=== PATIENT | female | born 1945 | race Caucasian/White ===

== ENCOUNTER → 2016-12-11 | Day surgery (SDC) | payer OTHER, MEDICARE ==
[~2016-12-11] MED LIST: ALTEPLASE 2 MG VIAL IVP ONE
--- NOTE | 2016-12-11 19:26 | IR ---
Lysis follow up check Indication: Patient has been lysed percutaneously 2 hours now into calf hematoma. Informed consent: Obtained from the patient. Risks and benefits were discussed. Crosscutting Measure: Patient's current list of medications including all known prescriptions, over- the-counters, herbals, and vitamin/mineral/dietary supplements are reviewed. Medications' name, dosa ge, frequency, and route of administration are confirmed. The patient is a non-smoker. Prophylactic Antibiotic: Cefazolin was not ordered and administered for antimicrobial prophylaxis be cause it was not medically necessary. VTE Prophylaxis: There is not an order for VTE prophylaxis to be given within 24 hours of the proced ure end time. VTE prophylaxis was not given because it was not medically necessary. Technique: Patient was placed in prone position. A "timeout" procedure was performed to identify th e correct patient and the correct procedure. 1% Xylocaine was used for local anesthetic. All eleme nts of maximal sterile barrier technique including cap, mask, sterile gown, sterile gloves, large sotero rile sheet, hand hygiene, and 2% chlorhexidine for cutaneous antisepsis, followed. Ultrasound evaluation of potential access site was performed. A permanent recording was created for the patient's record. When ultrasound is used, sterile gel and probe covers are used. Ultrasound shows some liquefaction of the calf hematoma. I was able to aspirate out the entire 10 mL volume that was injected, as well as additional 10 mL of dark blood. There still is quite a bit of he matoma remaining, but the overall size of the hematoma now is 3.6 x 2.4 cm, smaller than what we star felicita with. In addition, the calf feels softer. After discussion with the patient, the decision was made to continue lysis overnight. Additional 10 m g of TPA were then ordered from Pharmacy, mixed in a total of 20 mL of syringe, and injected into the pigtail catheter. The catheter was intentionally placed at the top of the hematoma so that by gravit y, some of the injected TPA will work the bottom part of the hematoma overnight. Patient tolerated the procedure well, and understood all the information discussed. Drain was dressed extrinsically and wrapped with a compression wrap. Impression: 1. Some liquefaction of the hematoma. 2. I think patient would benefit from continued overnight TPA lysis, which was done as above describe d. Plan: Patient is scheduled to come back tomorrow at noon for completion of the procedure. At that fang e, I suspect what get is all that we could accomplished. Fluoroscopy: 0.1 minutes, 1 image.
--- NOTE | 2016-12-11 19:34 | IR ---
Ultrasound and fluoroscopy-guided hematoma drainage and lysis Indication: About 6 weeks post ruptured Ye's cyst, with a large hematoma starting off about 8 cm in the calf, now down to 5 cm, still contributing to significant pain. Last ultrasound done was about 3 weeks ago. Patient still walks with a walker, and complains of ankle swelling and pain. Informed consent: Obtained from the patient. Risks and benefits were discussed. Specifically, multip le discussions took place with the patient prior to the patient presenting today over the phone, that described briefly what I had in mind for the patient. Patient has Von Willebrand disease and I reass ured her that TPA lysis into a tissue cavity typically does not cause any bleeding issues. Crosscutting Measure: Patient's current list of medications including all known prescriptions, over- the-counters, herbals, and vitamin/mineral/dietary supplements are reviewed. Medications' name, dosa ge, frequency, and route of administration are confirmed. The patient is a non-smoker. Prophylactic Antibiotic: Cefazolin was not ordered and administered for antimicrobial prophylaxis be cause it was not medically necessary. VTE Prophylaxis: There is not an order for VTE prophylaxis to be given within 24 hours of the proced ure end time. VTE prophylaxis was not given because it was not medically necessary. Technique: Patient was placed in prone position. A "timeout" procedure was performed to identify th e correct patient and the correct procedure. 1% Xylocaine was used for local anesthetic. All eleme nts of maximal sterile barrier technique including cap, mask, sterile gown, sterile gloves, large sotero rile sheet, hand hygiene, and 2% chlorhexidine for cutaneous antisepsis, followed. Ultrasound evaluation of potential access site was performed. A permanent recording was created for the patient's record. When ultrasound is used, sterile gel and probe covers are used. Initial ultrasound interrogation shows a hematoma that is 4.8 x 2.6 cm. It is somewhat tense on palpa tion. There are small areas of bruising on the skin. This hematoma is covered in septations and compl exity. After local anesthetics, under ultrasound guidance, I advanced a 5-Mauritian [employer] catheter into the mids t of this hematoma. I was able to aspirate only 5 mL of blood out. 6 mg of TPA in 20 mL of saline were injected into this hematoma. After some wire manipulation, I was able to remove 35 mL of fluid. With this success, I decided to perform the lyse and wait technique on this patient. The Yueh catheter was then exchanged over wire for a 10-Mauritian multi-sidehole pigtail catheter, after the tract was dilated with sequential dilators. This allowed a larger sidehole and a pigtail to gracia pulate the complexity within the hematoma. This was done. Additional 6 mg of TPA were ordered from pharmacy, mixed in 20 mL of saline, and injected into the he matoma. All of the previously injected 6 mg were already aspirated out. The drain was then capped, and patient was sent to Recovery Room for lysis. Patient tolerated the pr ocedure well. Fluoroscopy: 1.3 minutes, 4 images. Impression: 1. Some initial success seen with just injection of 6 mg of TPA with removal of some hematoma. 2. Residual 4.8 x 2.6 cm hematoma in the mid calf with some tenseness, and is extensively complex as anticipated. 3. Once the additional 6 mg of TPA were aspirated out, I injected additional 6 mg of TPA into the hem atoma for lyse and wait technique. Plan: Patient will lyse in Recovery Room for 2 hours. We will recheck at that point.
== END | disposition home or self-care (01) ==
LOC: FIMAGING 11:58
PROVIDERS: ATTEND Orthopaedic Surgery
PROC: 0J9N3ZZ Drainage of Right Lower Leg Subcutaneous Tissue and Fascia, Percutaneous Approach (ICD-10-PCS; principal; 2016-12-11)
DX: M79.81 Nontraumatic hematoma of soft tissue (principal)
CPT/HCPCS: 27603; 75989; C1729; C1769; J2997

== ENCOUNTER 2016-12-12 18:35 | Emergency (ER) | payer OTHER, MEDICARE ==
[2016-12-12 18:50] VITALS: RESP 18
--- NOTE | 2016-12-12 19:55 | EDPHY ---
H & P Stated Complaint: hematoma drained today r calfdr mao/bleeding at site/pt with bleeding disor Time Seen by Provider: 12/12/16 19:07 HPI/ROS: CHIEF COMPLAINT: Bleeding status post interventional radiology procedure HISTORY OF PRESENT ILLNESS: The patient presents to the ED with bleeding following a aspiration of a hematoma with infusion of tPA performed interventional radiology earlier today. The patient does have a history of von Willebrand's disease. She had drainage of the hematoma because it was symptomatic. The patient denies any numbness or weakness. She denies any recent history of trauma. The patient presents to the ED secondary to ongoing bleeding. She describes approximately a quarter cup of blood which drained earlier today. REVIEW OF SYSTEMS: A comprehensive 10 point review of systems is otherwise negative aside from elements mentioned in the history of present illness. - Personal History Current Tetanus/Diphtheria Vaccine: Yes - Medical/Surgical History Hx Asthma: No Hx Chronic Respiratory Disease: No Hx Diabetes: No Hx Cardiac Disease: Yes Hx Renal Disease: No Hx Cirrhosis: No Hx Alcoholism: No Hx HIV/AIDS: No Hx Splenectomy or Spleen Trauma: No Other PMH: Diabetes, history of heart attacks in 1999, blood disorder, breast cancer 2000, cornea problems, kidney stones - Social History Smoking Status: Never smoked - Physical Exam Exam: General Appearance: Alert, no distress Neurological: 5/5 strength noted throughout the right lower extremity, sensation intact to light touch Skin: Puncture site demonstrates mild venous oozing, there is no evidence of active arterial bleeding Musculoskeletal: Neck is supple nontender Extremities: No evidence of recurrent hematoma noted in the right leg Constitutional: Initial Vital Signs Temperature (C) 36.4 C 12/12/16 18:45 Heart Rate 91 12/12/16 18:45 Respiratory Rate 18 12/12/16 18:45 Blood Pressure 155/94 H 12/12/16 18:45 O2 Sat (%) 97 12/12/16 18:45 O2 Delivery Mode Room Air Allergies/Adverse Reactions: desmopressin acetate [From DDAVP (Refrigerated)] Allergy (Severe, Verified 12/12 18:43) Other-Enter Comments levofloxacin [From Levaquin] Allergy (Verified 12/12/16 18:43) Home Medications: Medication Instructions Recorded Aspirin [Aspirin 325 mg (*)] 325 mg PO DAILY 09/08/12 Cyclosporine [Restasis] 1 each LEFTEYE BID 09/08/12 Cholecalciferol Vit D3 [Vitamin D3 1,000 units PO DAILY 04/30/15 (*)] Ferrous Sulfate [Ferrous Sulf 325 160 mg PO DAILY 04/30/15 MG (*)] Multivitamin with Minerals 1 each PO DAILY 04/30/15 [Multiple Vitamin] Propylene Glycol/Peg 400 [Systane 1 drop OP HS 04/30/15 Gel Eye Drops] VITAMIN E 400 iunits PO Q2ODD 12/07/16 Medical Decision Making ED Course/Re-evaluation: The patient presents to the ED with postoperative bleeding likely a result of mild venous oozing and ongoing resolution of her calf hematoma. The case was reviewed with Dr. Luis from Radiology. The patient has been placed in a pressure dressing and will follow up with Dr. Luis for a recheck tomorrow. The patient will return this evening for any ongoing bleeding or other concerns. Departure - Departure Disposition: Home, Routine, Self-Care Clinical Impression: Post-operative hemorrhage Condition: Good Instructions: Hematoma (ED) Additional Instructions: 1. Please followup as directed by Dr. Luis tomorrow and
[2016-12-12 20:41] VITALS: BP 131/86; PULSE 77; TEMP 98.2; O2SAT 96
== END 2016-12-12 20:42 | disposition home or self-care (01) ==
DX: L76.21 Postprocedural hemorrhage of skin and subcutaneous tissue following a dermatologic procedure (principal); E11.9 Type 2 diabetes mellitus without complications; Z85.3 Personal history of malignant neoplasm of breast; Z79.82 Long term (current) use of aspirin

== ENCOUNTER → 2016-12-12 | Day surgery (SDC) | payer OTHER, MEDICARE ==
--- NOTE | 2016-12-14 09:12 | IR ---
Lysis Follow Up INDICATION: The patient went home yesterday with a pigtail catheter and infusion of 10 mg of TPA in the calf cavity. Follow up. Informed Consent: Obtained from the patient. Risks and benefits were discussed. Cross Cutting Measure: Patient's current list of medications including all known prescriptions, over -the-counters, herbals, and vitamin/mineral/dietary supplements are reviewed. Medications' name, dos age, frequency, and route of administration are confirmed. Patient is a non-smoker. Prophylactic Antibiotic: Cefazolin was not ordered and administered for antimicrobial prophylaxis be cause it was not medically necessary. VTE Prophylaxis: There is not an order for VTE prophylaxis to be given within 24 hours of the proced ure end time. VTE prophylaxis was not given because it was not medically necessary. Technique: Patient is placed in prone position. A "timeout" procedure was performed to identify the correct patient and the correct procedure. 1% Xylocaine was used for local anesthetic. All element s of maximal sterile barrier technique, including cap, mask, sterile gown, sterile gloves, large ster ile sheet, hand hygiene, and 2% chlorhexidine for cutaneous antisepsis, followed. Ultrasound evaluation of potential access site was performed. A permanent recording was created for the patient's record. When ultrasound is used, sterile gel and probe covers are used. Ultrasound interrogation shows definitive liquefaction of the majority of what is left in the cavity. I aspirated out 40 mL of blood, when the previous injection was 20 mL in volume. Postaspiration ultrasound shows a small residual hematoma that is 0.9 x 4.7 cm in transverse dimensio n. It is much narrower, just got a little bit longer in the mid calf. The craniocaudal extension fr om the medial popliteal fossa down to the distal calf is not changed. Therefore, considered that the third dimension is unchanged, and just by calculating via the transver se dimensions, there has been a 67% volume decrease since yesterday when the patient first presented with the residual hematoma. Physical exam also reveals a much softer calf. It is difficult for the patient to appreciate whether or not symptomatically she is any better. Catheter was removed. Compression stocking is applied. I encouraged the patient to ambulate, and to apply compression as well as ice pack, as needed. The alternative of continuing TPA infusion was discussed. I thought in general that what has not anthony ed in the last 24 hours likely will not lyse with continued lysis. However, that is an option if the patient feels that her symptoms could benefit from continued treatment. The patient expressed full understanding of all of the information discussed today and was fairly sat isfied with the overall volume decrease. IMPRESSIONS 1. Satisfactory overnight TPA lysis of the calf hematoma. 2. Overall decrease of the volume of the presenting calf hematoma by 67%. 3. What's left can be treated conservatively by application of compression stocking and ice pack. I f clinically indicated, we could repeat a 24 to 48 hour lysis for what's left in the calf. Thank you very much for referral of this patient.
== END | disposition home or self-care (01) ==
LOC: FIMAGING 12:41
PROVIDERS: ATTEND Radiology Diagnostic Radiology
PROC: 0J9N3ZZ Drainage of Right Lower Leg Subcutaneous Tissue and Fascia, Percutaneous Approach (ICD-10-PCS; principal; 2016-12-12)
DX: M79.81 Nontraumatic hematoma of soft tissue (principal)

== ENCOUNTER → 2016-12-14 | Outpatient (CLI) | payer OTHER, MEDICARE ==
--- NOTE | 2016-12-14 23:11 | US ---
Right Lower Extremity Duplex Venous Doppler INDICATION: Status post lysis of right calf hematoma. Patient went to the Emergency Department two days ago following the last episode of lysis with bleeding. The bleeding at that time is caused by residual TPA that was still in the residual hematoma. What wa s bleeding was residual hematoma. There was no new bleed. At that time, a large compression dressin g is applied to the top of the hematoma cavity, while leaving the incision site where the drain was d istally for exit of any fresh blood. Indeed, once the TPA effect has worn off 12 hours later, the pa tient stopped bleeding. However, because of the application of the compression, the patient's foot is now swollen. The patie nt presents today for follow up, as previously scheduled. TECHNIQUE: First, the compressive dressing is removed. There is no sign of bleeding. There is swel ling at the ankle and foot. What is most concerning to this patient is a large patch of skin tear that was caused by, according t o the patient, rapid removal of the Tegaderm in the Emergency Department. The patient says that was extremely painful, and continues to be painful. Nonadhesive dressing has been applied to the site at this time. I scanned the calf above and below the skin tear site. A DVT ultrasound was also performed to a limi felicita extent. FINDINGS: The hematoma now measures on transverse dimension 2.9 x 2 cm. It is slightly larger than the previous 4.7 x 0.9 cm by volume, probably because of interval reaccumulation of some of the blood that did not come out with the compression dressing. The overall cranial to caudal extension of thi s hematoma remains at 11 cm. Some of this blood within it is also soft, and I suppose if I stuck a n eedle into this today, I would be able to remove some of this blood. However, I think at this point no additional procedure is beneficial for the patient. Otherwise, there is no evidence for DVT below the knee. IMPRESSION: 1. Small hematoma remaining in the calf, still about 60% decreased in volume compared to what she st arted with. 2. No further bleeding 3. Ankle and calf swelling were resolved now that the compression dressing is removed. 4. Skin tear from previous Tegaderm removal, now dressed with nonadhesive dressing. This is also co lissett today with a light Kerlix wrap. Recommendations 1. Continue walking, as tolerated. 2. It would be best if the patient could tolerate a compressive stocking, which at this point the pa tient is refusing to do because of pain. I think at some point, when the swelling and pain gets bett er and the skin tear heals, return to application of compressive stocking would benefit the patient. 3. The residual hematoma in the calf will just take time to resorb. All of this was discussed in detail with the patient, with her present. Total [id number] c onsultation was one hour. The above are also discussed with Dr. Humza Pedroza. E:Joshua/ludwin
== END ==
LOC: FIMAGING 09:04
PROVIDERS: ATTEND Radiology Diagnostic Radiology
DX: L76.32 Postprocedural hematoma of skin and subcutaneous tissue following other procedure (principal)

== ENCOUNTER 2017-02-07 10:11 | Inpatient (IN) | payer OTHER, MEDICARE ==
--- NOTE | 2017-02-07 10:56 | CPEKG ---
Heart Rate: 79 RR Interval: 759 P-R Interval: 188 QRSD Interval: 132 QT Interval: 436 QTC Interval: 500 P Sears: 22 QRS Sears: -18 T Wave Sears: -5 EKG Severity - ABNORMAL ECG - EKG Impression: SINUS RHYTHM EKG Impression: PROBABLE LEFT ATRIAL ABNORMALITY EKG Impression: RIGHT BUNDLE BRANCH BLOCK EKG Impression: LEFT VENTRICULAR HYPERTROPHY Electronically Signed By: Juan José Casanova 07-Feb-2017 15:11:46
[2017-02-07] MEDS ORDERED: NS 1,000 ML IV ONE (10:59)
[2017-02-07 11:16] LABS: % IMMATURE GRANULYOCYTES 0.8 % (0.0-1.1); ABSOLUTE IMMATURE GRANULOCYTES 0.11 10^3/uL (0.00-0.10); ADD DIFF? NO; ADD MORPH? NO; ADD SCAN? NO; ATYPICAL LYMPHOCYTE FLAG 0 (0-99); FRAGMENT RBC FLAG 0 (0-99); HEMATOCRIT 29.3 % (38.0-47.0); HEMOGLOBIN 9.6 g/dL (12.6-16.3); LEFT SHIFT FLG 0 (0-99); LIPEMIA HEMOLYSIS FLAG 80 (0-99); MEAN CELL HEMOGLOBIN 30.1 pg (27.9-34.1); MEAN CELL HEMOGLOBIN CONCENTR. 32.8 g/dL (32.4-36.7); MEAN CELL VOLUME 91.8 fL (81.5-99.8); MEAN PLATELET VOLUME 10.7 fL (8.7-11.7); PLATELET CLUMPS FLAG 0 (0-99); PLATELET COUNT 287 10^3/uL (150-400); RED BLOOD CELL COUNT 3.19 10^6/uL (4.18-5.33); RED CELL DISTRIBUTION WIDTH 13.4 % (11.5-15.2)
[2017-02-07 11:23] LABS: ANION GAP 9 mEq/L (8-16); CALCIUM 9.8 mg/dL (8.5-10.4); CARBON DIOXIDE 21 mEq/l (22-31); CHLORIDE 112 mEq/L (97-110); CREATININE 0.8 mg/dL (0.6-1.0); GLOMERULAR FILTRATION RATE > 60; GLUCOSE 128 mg/dL (70-100); POTASSIUM 4.3 mEq/L (3.5-5.2); SODIUM 142 mEq/L (134-144)
--- NOTE | 2017-02-07 11:23 | EDPHY ---
H & P Smoking Status: Never smoked Time Seen by Provider: 02/07/17 10:36 HPI/ROS: CHIEF COMPLAINT: Dizziness, diarrhea HISTORY OF PRESENT ILLNESS: 71-year-old female presents to the emergency department feeling extremely dizzy. The patient states that she was so dizzy yesterday that she could stand upright. She had to crawl to the bathroom. She has had multiple episodes of watery diarrhea. She denies blood in her stool. She did try taking Pepto-Bismol which she thought was the reason that her stool was more black in color. Denies abdominal pain. Denies nausea or vomiting. Denies back pain. Denies chest pain or difficulty breathing. She feels extremely dizzy especially when she tries to sit upright. No fevers or chills. No recent travel. No known ill contacts. She has not been on antibiotics recently for anything. REVIEW OF SYSTEMS: Constitutional: No fever, no chills. Eyes: No double or blurry vision. ENT: No sore throat. Respiratory: No cough, no shortness of breath. Cardiac: No chest pain. Gastrointestinal: Diarrhea as above. No abdominal pain or vomiting. Genitourinary: No dysuria. Musculoskeletal: No neck or back pain. Skin: No rashes. Neurological: No headache. (Radha Lemons) Past Medical/Surgical History: Diabetes, myocardial infarction, von Willebrand, breast cancer, osteoarthritis ( Radha Lemons) Social History: (Radha Lemons) Physical Exam: General Appearance: Alert, no distress. 95/49, heart rate 91, 99% on room air, afebrile. Eyes: Pupils equal and round. Extraocular motions are all intact. No nystagmus. ENT: Mouth: Mucous membranes moist. Respiratory: No wheezing, rhonchi, or rales, lungs are clear to auscultation. Cardiovascular: Regular rate and rhythm. Gastrointestinal: Abdomen is soft and nontender, no masses, no rebound or guarding, bowel sounds normal. Neurological: Alert and oriented x 3, cranial nerves II through XII grossly intact Skin: Warm and dry, no rashes. Rectal exam: Normal sphincter tone. Positive for melena. No bright red blood. Musculoskeletal: Nontender to palpate along the cervical, thoracic or lumbar spine. Neck is supple. Extremities: Full range of motion and no peripheral edema. Psychiatric: Patient is oriented X 3, there is no agitation. (Radha Lemons) Constitutional: Initial Vital Signs Temperature (C) 36.2 C 02/07/17 10:20 Heart Rate 91 02/07/17 10:20 Respiratory Rate 22 H 02/07/17 10:20 Blood Pressure 95/49 L 02/07/17 10:20 O2 Sat (%) 99 02/07/17 10:20 O2 Delivery Mode Room Air Allergies/Adverse Reactions: desmopressin acetate [From DDAVP (Refrigerated)] Allergy (Severe, Verified 02/07 10:20) Other-Enter Comments levofloxacin [From Levaquin] Allergy (Verified 02/07/17 10:20) Home Medications: Medication Instructions Recorded Aspirin [Aspirin 325 mg (*)] 325 mg PO DAILY 09/08/12 Cholecalciferol Vit D3 [Vitamin D3 1,000 units PO DAILY 04/30/15 (*)] Ferrous Sulfate [Ferrous Sulf 325 160 mg PO DAILY 04/30/15 MG (*)] Multivitamin with Minerals 1 each PO DAILY 04/30/15 [Multiple Vitamin] Propylene Glycol/Peg 400 [Systane 1 drop EACHEYE HS 04/30/15 Gel Eye Drops] Herbals/Supplements -Info Only 1 ea PO DAILY 12/07/16 cycloSPORINE 0.05% [Restasis Opht 1 drop LEFTEYE BID 02/07/17 Drops(*)] Medical Decision Making - Diagnostics EKG Interpretation: 12-lead EKG interpreted by me; official reading is in trace master. My interpretation is sinus rhythm rate 79 with right bundle branch block and LVH. ( Juan José Casanova) ED Course/Re-evaluation: 71-year-old female presents feeling very dizzy and having diarrhea. Rectal exam reveals melena. CBC reveals hemoglobin of 9 and hematocrit of 29.3. This is much lower compared with laboratory test 1 month prior were her CBC was normal. I explained to the patient that she should be admitted to the hospital. The patient tells me that she has several appointments tomorrow that she does not want to miss. Dr. Juan José Casanova also talk with the patient and the patient will be admitted to the hospitalist, Dr. Lopez. I spoke with Dr. Duarte, on-call camera systems engineer of the [facility] who will consult on this patient. He agrees with IV Protonix. (Radha Lemons) Differential Diagnosis: Including but not limited to GI bleed, gastroenteritis, dehydration, electrolyte abnormality, arrhythmia (Radha Lemons) Other Provider: PHYSICIAN DOCUMENTATION: The patient was evaluated and managed by the Physician Construction Laborer and myself. I have reviewed the chart and agree with the findings and plan of care as documented. In addition, I examined the patient myself at 1220. History confirmed as diarrhea for a few days but melena only for 24 hours. Physical findings as follows: Abdomen soft and nontender. Patient blood pressure 90/4 systolic. Admission for dehydration, possible GI bleed with large drop in hematocrit and melena. Consultation from GI. Patient has Von Willebrands but refuses DDAVP because of previous adverse reaction. I am the secondary supervising physician. (Juan José Casanova) - Data Points Laboratory Results: Laboratory Results 02/07/17 10:40 02/07/17 10:40 02/07/17 02/07/17 02/07/17 11:30 10:40 10:40 WBC 14.49 10^3/uL H 10^3/uL (3.80-9.50) RBC 3.19 10^6/uL L 10^6/uL (4.18-5.33) Hgb 9.6 g/dL L g/dL (12.6-16.3) Hct 29.3 % L % (38.0-47.0) MCV 91.8 fL fL (81.5-99.8) MCH 30.1 pg pg (27.9-34.1) MCHC 32.8 g/dL g/dL (32.4-36.7) RDW 13.4 % % (11.5-15.2) Plt Count 287 10^3/uL 10^3/uL (150-400) MPV 10.7 fL fL (8.7-11.7) Neut % (Auto) 78.1 % H % (39.3-74.2) Lymph % (Auto) 15.4 % % (15.0-45.0) Motley % (Auto) 5.4 % % (4.5-13.0) Eos % (Auto) 0.1 % L % (0.6-7.6) Baso % (Auto) 0.2 % L % (0.3-1.7) Nucleat RBC Rel Count 0.0 % % (0.0-0.2) Absolute Neuts (auto) 11.33 10^3/uL H 10^3/uL (1.70-6.50) Absolute Lymphs (auto) 2.23 10^3/uL 10^3/uL (1.00-3.00) Absolute Monos (auto) 0.78 10^3/uL 10^3/uL (0.30-0.80) Absolute Eos (auto) 0.01 10^3/uL L 10^3/uL (0.03-0.40) Absolute Basos (auto) 0.03 10^3/uL 10^3/uL (0.02-0.10) Absolute Nucleated RBC 0.00 10^3/uL 10^3/uL (0-0.01) Immature Gran % 0.8 % % (0.0-1.1) Immature Gran # 0.11 10^3/uL H 10^3/uL (0.00-0.10) PT INR APTT Sodium 142 mEq/L mEq/L (134-144) Potassium 4.3 mEq/L mEq/L (3.5-5.2) Chloride 112 mEq/L H mEq/L (97-110) Carbon Dioxide 21 mEq/l L mEq/l (22-31) Anion Gap 9 mEq/L mEq/L (8-16) BUN 62 mg/dL H mg/dL (7-23) Creatinine 0.8 mg/dL mg/dL (0.6-1.0) Estimated GFR > 60 Glucose 128 mg/dL H mg/dL (70-100) Calcium 9.8 mg/dL mg/dL (8.5-10.4) Troponin I < 0.012 ng/mL ng/mL (0-0.034) Stool Occult Bld Scrn POSITIVE H (NEGATIVE) 02/07/17 10:00 WBC RBC Hgb Hct MCV MCH MCHC RDW Plt Count MPV Neut % (Auto) Lymph % (Auto) Motley % (Auto) Eos % (Auto) Baso % (Auto) Nucleat RBC Rel Count Absolute Neuts (auto) Absolute Lymphs (auto) Absolute Monos (auto) Absolute Eos (auto) Absolute Basos (auto) Absolute Nucleated RBC Immature Gran % Immature Gran # PT 14.1 SEC SEC (12.0-15.0) INR 1.10 (0.83-1.16) APTT 24.8 SEC SEC (23.0-38.0) Sodium Potassium Chloride Carbon Dioxide Anion Gap BUN Creatinine Estimated GFR Glucose Calcium Troponin I Stool Occult Bld Scrn Microbiology Results: MICROBIOLOGY 02/07/17 11:30 Stool Fecal Leukocyte Stain - Final Medications Given: Discontinued Medications Sodium Chloride (Ns) 1,000 mls @ 0 mls/hr IV ONCE ONE PRN Reason: Wide Open Stop: 02/07/17 11:00 Last Admin: 02/07/17 11:00 Dose: 1,000 mls Pantoprazole Sodium 40 mg/ (Sodium Chloride) 100 mls @ 200 mls/hr IV EDNOW ONE Stop: 02/07/17 12:44 Last Admin: 02/07/17 12:34 Dose: 100 mls Departure - Departure Disposition: [facility] In[facility] Acute Clinical Impression: GI bleed Qualifiers: GI bleed type/associated pathology: melena Qualified Code(s): K92.1 - Melena Anemia Qualifiers: Anemia type: unspecified type Qualified Code(s): D64.9 - Anemia, unspecified Condition: Good
[2017-02-07 11:35] LABS: TROPONIN I < 0.012 ng/mL (0-0.034)
[2017-02-07] MEDS ORDERED: PANTOPRAZOLE SODIUM 40 MG in NS 100 ML IV ONE (12:15)
[2017-02-07] MEDS ORDERED: ONDANSETRON 4 MG/2 ML VIAL IVP PRN (12:16)
[2017-02-07] MEDS ORDERED: ACETAMINOPHEN 325 MG TAB PO PRN (12:16)
[2017-02-07] MEDS ORDERED: ONDANSETRON DISINTEGRATING 4 MG TAB PO PRN (12:16)
[2017-02-07] MEDS ORDERED: NS 1,000 ML IV SCH (12:30)
[2017-02-07 12:31] LABS: INR 1.1 (0.83-1.16); PROTIME(PATIENT) 14.1 SEC (12.0-15.0)
[2017-02-07 12:32] LABS: APTT 24.8 SEC (23.0-38.0)
--- NOTE | 2017-02-07 15:21 | GHP ---
[f rep st] HISTORY AND PHYSICAL DATE OF ADMISSION: 02/07/2017 CHIEF COMPLAINT: Diarrhea. HISTORY OF PRESENT ILLNESS: A 71-year-old female with a history of von Willebrand factor, who prese nts with diarrhea for 48 hours. The patient reports a preceding syndrome of lightheadedness and diz ziness, then presentation of normal color diarrhea which became dark black over the course of 48 radhames rs, associated with severe fatigue and severe dizziness, keeping the patient from comfortably ambula ting from the bathroom to her bedroom on the day of presentation. The patient denied any associated chest pain. Denies shortness of breath. Did have some phlegm production, but no true cough. Zia ed abdominal discomfort. Denied nausea or vomiting. Reports she has not had solid food intake for over 24 hours prior to presentation. The patient denies any alcohol intake, use of NSAID, anti-infl ammatories, or any preceding symptoms of dyspepsia. Reports a recent and chronic left lower extremi ty/ankle wound, which she has been receiving wound care for. This wound has been requiring frequent use of p.r.n. Percocet that she describes as daily, but not more than once a day. PAST MEDICAL HISTORY: 1. Coronary artery disease, status post stenting. 2. Von Willebrand disease. 3. Recent left calf hematoma, status post tPA and evacuation. 4. History of cholecystectomy. 5. History of small-bowel obstructions secondary to adhesions. 6. History of iron-deficiency anemia. 7. History of nephrolithiasis. 8. Osteoarthritis. 9. Vitamin D deficiency. SOCIAL HISTORY: Negative for tobacco. Very rare alcohol. No illicit drugs or marijuana. The tere ent lives at home with her . FAMILY HISTORY: Negative for von Willebrand disease. REVIEW OF SYSTEMS: A 10-point review of systems is negative with the exception of that reported in the HPI. PHYSICAL EXAMINATION: VITAL SIGNS: Blood pressure is 122/78, heart rate 77, respiratory rate 12, s aturating 99% on room air. Afebrile at 36.6. GENERAL: This is a pleasant-appearing elderly female in no acute distress. HEENT: Notable for moist mucous membranes. Eyes: Negative for any icterus . CARDIAC: Patient is regular rate and rhythm. A quiet systolic murmur is appreciated. PULMONARY : Patient has good respiratory effort, is clear to auscultation bilaterally. GASTROINTESTINAL: Po sitive bowel sounds. ABDOMEN: Soft. She is nontender in all 4 quadrants. MUSCULOSKELETAL: Negat jack for any lower extremity edema. SKIN: Negative for any rashes. NEUROLOGIC: The patient is ruben rt and oriented x3. PSYCHIATRIC: She is pleasant and cooperative on interview and examination. DATA: White count 14.4, hemoglobin 9.6 from 13.2 one month ago. Hematocrit 29, platelet count 287. Sodium 142, BUN 62, creatinine 0.8, blood glucose 128. Troponin less than 0.012. Hemoccult posit jack. EKG, which I personally reviewed and interpreted, shows sinus rhythm, leftward axis deviation with right bundle branch block. No acute ST-T changes. ASSESSMENT AND PLAN: This is a 71-year-old female, presenting with melena and new anemia. 1. Acute suspected upper gastrointestinal bleed. The patient does not have a lot of symptoms prece ding this presentation, but has had a precipitous drop in her blood counts since last checked. Base d on her melena, highly suspicious of an upper source. Will initiate IV PPI, IV fluids, keep the pa tient n.p.o. She will be seen by Gastroenterology and scoped later this afternoon. 2. Anemia, secondary to acute blood loss. The patient is certainly at risk for more precipitous bl eeding secondary to her von Willebrand disease. Holding the patient's aspirin and treating for uppe r GI bleed as above, will closely monitor H and H overnight and in the morning. 3. Von Willebrand disease. Patient does have preceding histories of hematomas and complications. Will monitor her H and H closely. Current vital signs are stable. 4. Coronary artery disease. Patient does not have chest pain complaints. Will hold her aspirin. EKG is "unconcerning" for acute ischemia. 5. History of iron-deficiency anemia. The patient presented with normal hemoglobin and hematocrit. Will certainly need iron repletion after this acute hospitalization. Can continue after taking p. o. 6. Arthritis. Patient intermittently uses naproxen; however, the usage does not seem to correlate with a cause for upper gastrointestinal bleed. Will avoid NSAIDs at this time. 7. Prophylaxis. No heparin as the patient is presenting with acute gastrointestinal bleed. DIET: N.p.o. for EGD. DISPOSITION: Greater than 2 midnights as the patient is presenting with upper GI bleed complicated by an underlying bleeding disorder. Suspect it will take more than 1 midnight to stabilize the tere ent and safely monitor her blood counts. I have discussed the case with the emergency room sae barrios. Patient will be triaged to the medical-surgical floor for stabilization, monitoring, and EGD. /[id number]/MODL
[2017-02-07] MEDS ORDERED: fentaNYL 100 MCG/2 ML INJ ONE (17:33)
[2017-02-07] MEDS ORDERED: MIDAZOLAM 2 MG/2 ML VIAL ONE (17:33)
--- NOTE | 2017-02-07 17:56 | SOAPPROG ---
[facility] Progress Note Assessment/Plan: Assessment:Plan: pt seen and examined full consult to follow suspect PUD from [facility] urgent EGD 02/07/17 17:56 Objective: Vital Signs Temp Pulse Resp BP Pulse Ox 36.7 C 85 18 112/57 L 98 02/07/17 15:12 02/07/17 15:12 02/07/17 15:12 02/07/17 15:12 02/07/17 15:12 02/06/17 02/07/17 02/08/17 05:59 05:59 05:59 Intake Total 1000 Balance 1000 PT 14.1 SEC (12.0-15.0) 02/07/17 10:00 INR 1.10 (0.83-1.16) 02/07/17 10:00 ICD10 Worksheet Patient Problems: Problems Problem Status Onset Anemia Acute GI bleed Acute SBO (small bowel obstruction) Acute
--- NOTE | 2017-02-07 17:58 | POSTOPPROG ---
Post Op Note Date of Operation: 02/07/17 Surgeon: Fortino Duarte Anesthesia: IV Sedation (Versed 5mg Fentanyl 100 mcg IV) Pre-op Diagnosis: PUD Post-op Diagnosis: large antonia erosions with bleed, ?paraesophageal hernia Indication: melena, post hemorrhagic anemia Procedure: EGD and bx Findings: large HH poss paraesophageal component with large antonia erosions w bleedi Inf/Abcess present in the surg proc area at time of surgery?: No EBL: Minimal (few ml) Complications: none immediate Specimen(s): michelle test
--- NOTE | 2017-02-07 19:48 | GPN ---
[f rep st] PROCEDURE NOTE DATE OF PROCEDURE: 02/07/2017 PROCEDURE: Esophagogastroduodenoscopy and biopsy. INDICATION FOR PROCEDURE: Melena and posthemorrhagic anemia. PREOPERATIVE DIAGNOSIS: Rule out peptic ulcer disease. POSTOPERATIVE DIAGNOSES: 1. Large hiatal hernia with Denis erosions with active bleeding from Denis erosions. 2. No evidence of peptic ulcer disease. 3. Normal esophagus and normal duodenal. INFORMED CONSENT: I had a detailed discussion with the patient regarding the procedure, alternatives, benefits, and risks, including bleeding, perforation, infection, risk of medication. Informed consent was signed and witnessed. COMPLICATIONS: None immediate. MEDICATIONS USED: Versed 5 mg IV, fentanyl 100 mcg IV. DESCRIPTION OF PROCEDURE: Patient was placed in the left lateral decubitus position. Adequate IV sedation was obtained. The forward viewing upper endoscope was inserted into the oropharynx and down the esophagus. The esophagus was normal. There was no evidence of esophagitis, varices, or other abnormality. The endoscope was advanced to the very large hiatal hernia sac. There were obvious Denis erosions noted in the hiatal hernia sac with stigmata of recent bleed. There was a small amount of fresh heme and some old heme around the area as well. There is nothing to treat endoscopically with these large Denis erosions. The endoscope was advanced down into the antrum. There were no ulcers or masses in the antrum. I advanced into the duodenal bulb and sweep. There were no ulcers or masses. The endoscope was withdrawn back into the stomach and retroflexion was performed. The endoscope was withdrawn back into the hiatal hernia sac and photographs were obtained again. There was a possible paraesophageal component to the very large hiatal hernia. The endoscope was then advanced down to the antrum and biopsy taken for CLOtest. The endoscope was then completely withdrawn, confirming the above findings. The patient tolerated the procedure well and was transferred to the recovery area in a satisfactory condition. IMPRESSION: Large hiatal hernia, possible paraesophageal component with Denis erosions to cause the patient's melena and posthemorrhagic anemia. RECOMMENDATIONS: 1. PPI b.i.d. at least for 8 weeks, unlikely she made need a b.i.d. dosage intermediate. I would certainly keep her on a daily dosage intermediate given this large hiatal hernia. History of iron deficiency anemia which, likely related to Denis erosions, were not noted at the previous endoscopy, need for intermediate aspirin secondary to cardiac disease and von Willebrand disease as well. 2. Follow up CLOtest. If negative, check for H pylori with either a breath test, stool test, or antibody test. In this patient, I prefer an antibody test ; however, this is not available at [facility] currently. The stool test and breath test will need to be performed when she is off PPI therapy which I do not want her to be in the future. 3. Transfer back to floor. 4. Advance diet. 5. No need for transfusion at present. 6. Further recommendations to follow results of above and clinical course. As an outpatient, I will likely want an upper GI series as well to delineate if there is a significant paraesophageal component to her hiatal hernia. She did not have any symptoms for paraesophageal hernia, although there is a very large hiatal hernia on today's exam. As noted above, she will need b.i.d. PPI for at least 8 weeks and maybe long-term. Denis erosions can come and go. PPI therapy, eradication of H pylori are main stage of treatment. If she has a paraesophageal hernia, surgery can be considered. Surgey can also be considered with a hiatal hernia, but it is a major surgery, and if we are able to keep the Denis erosions healed with medications, I may not recommend surgery. I was surprised that there was not peptic ulcer disease as Denis erosions are not common to present with significant GI bleed, and it has been many years since I saw a patient present with Denis erosions in this fashion, and this week I have had 2 such patients. Thank you for allowing me to participate in this patient's healthcare. Do not hesitate to call me with any questions. /[id number]/MODL MTDD
--- NOTE | 2017-02-07 19:48 | GCON ---
[f rep st] CONSULTATION DATE OF CONSULTATION: 02/07/2017 REQUESTING PHYSICIAN: Dr. Juan José Casanova. INDICATION FOR CONSULTATION: Melena and posthemorrhagic anemia. HISTORY OF PRESENT ILLNESS: I have been asked by Dr. Casanova and Dr. Lopez to see this patient in consultation for a chief complaint of new-onset melena and posthemorrhagic anemia associated with near syncope. She is a pleasant 71-year-old female with a history significant for coronary artery disease, status post stenting, von Willebrand disease, iron-deficiency anemia, nephrolithiasis, arthritis, vitamin D deficiency, and breast cancer. She did have a workup for iron-deficiency anemia back in 2009 with an EGD and colonoscopy which revealed a large hiatal hernia, mild gastric erythema, normal duodenal, and normal stomach. Her colonoscopy revealed moderate diverticulosis in the sigmoid, descending, and transverse colon, and a 3 mm sessile polyp in the rectum. The pathology of the duodenum was normal, without evidence of celiac sprue. The antrum showed no significant findings, and a rectal polyp was hyperplastic. 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 The only other endoscopy the patient had since then was an ERCP for choledocholithiasis. She was in her usual state of health until Sunday when she started to have diarrhea which was normal in color initially. Early Sunday morning. She had a significant episode of near-syncope, and somewhat later her stools turned black, consistent with melena. She had some dyspnea on exertion and fatigue, along with severe dizziness and near-syncope. She did not complain of any chest pain, palpitations, nausea, or vomiting. Her melena has subsided today, but she felt so poorly, she presented to the emergency room. She was noted to be severely anemic and admitted for the above. I have been called to help and evaluate and treat a presumed upper GI bleed. PAST MEDICAL HISTORY: Coronary artery disease, status post stenting, history of von Willebrand disease, breast cancer in 2000. She has had 2 MIs, kidney stones, gallstones, iron-deficiency anemia, osteoarthritis, and vitamin D deficiency. PAST SURGICAL HISTORY: Surgeries include appendectomy, tonsillectomy when she was young, lysis of adhesions, and back surgery in 1990. She needed surgical removal of a kidney stone. She had a cholecystectomy and ERCP afterwards for common bile duct stones. She has had eye surgery for corneal erosions and wears a medicated contact lens which is changed once monthly. She also had a recent lysis of adhesions, as well as knee arthroscopies. SOCIAL HISTORY: She does not smoke. She drinks alcohol once a year. ALLERGIES: To DDAVP and Levaquin. FAMILY HISTORY: Father had prostate cancer. There is no colon cancer to her knowledge. MEDICATIONS: At home included aspirin 325 mg daily, eyedrops at night, iron tablets 325 mg daily, vitamin D 1000 units daily, multivitamins, and Restasis eyedrops. In the hospital she was written for Protonix IV, Zofran p.r.n., morphine p.r.n., and her iron and aspirin were held. REVIEW OF SYSTEMS: A comprehensive review of systems was obtained, and is negative other than noted in the HPI. Pertinent positives include her melena, her diarrhea, her dyspnea on exertion, her fatigue, her severe dizziness and near syncope. Pertinent negatives include no palpitations, chest pain, vomiting. PHYSICAL EXAMINATION: GENERAL: Well-developed, well-nourished elderly female sitting in her bed in no acute distress. Her and daughter are in the room as well. VITAL SIGNS: Her pressure is 112/57, pulse of 85, respirations 18 , 98% on room air, temperature 36.7. HEENT: Eyes anicteric. DONNY. EOMI. Mouth: No lesions. NECK: Supple. No JVD. No lymphadenopathy noted. BACK: No spine tenderness. No CVA tenderness. LUNGS: Clear to auscultation. CARDIAC: S1, S2. Regular rate and rhythm. No rubs or gallops appreciated. She has a faint systolic murmur. ABDOMEN: Bowel sounds normal pitch and frequency. Soft, nontender. No hepatosplenomegaly. EXTREMITIES: No cyanosis, clubbing, or edema. NEUROLOGIC: Cranial nerves intact. Nonfocal. SKIN: No stigmata of advanced liver disease. No rashes. LABORATORY DATA: From February 07: WBC 14.49, hemoglobin 9.6, hematocrit 29.3, platelet count 287. Sodium 142, potassium 4.3, chloride 112, BUN 62, creatinine 0.8, glucose 128, calcium 9.8. She was heme-positive in the ER. H pylori serology is pending. Laboratory data from January 11, 2017: Hemoglobin 13.2, hematocrit 40.0. Previous endoscopies performed on June 27, 2010, EGD and colonoscopy. Colonoscopy was a good prep, exam to the cecum. Diverticulosis in the sigmoid, descending, and transverse colon. A 3 mm polyp removed from the rectum was a hyperplastic polyp. EGD performed the same date: Normal esophagus, large hiatal hernia, patchy erythema in the stomach, normal duodenal limb. Pathology of the duodenal mucosa was normal without evidence of celiac sprue and pathology of the antrum showed no significant findings, negative for H pylori. At that point , Dr. Archibald surmised that her anemia was likely caused from Denis erosions and recommended her be on a PPI fdc. ASSESSMENT: 1. Post hemorrhagic anemia. 2. Melena. 3. Von Willebrand disease. 4. [facility] use of aspirin 325 mg. 5. History of iron-deficiency anemia, likely related to Denis erosions from a large hiatal hernia. 6. History of coronary disease, status post stenting a number of years ago. 7. History of arthritis. 8. History of nephrolithiasis. RECOMMENDATIONS: 1. Urgent EGD for evaluation of melena, heme-positive stools, post hemorrhagic anemia. 2. Hold aspirin. 3. IV PPI. May change depending on results of EGD. 4. Followup H pylori serology. 5. PRBCs as per hospitalist. 6. Serial hemoglobin and hematocrit q.6 hours now, may change after results of EGD. 7. Once acute bleeding has resolved restart iron supplementation. I do not like to confuse black stools from iron with melena. 8. Further recommendations to follow results of EGD. Given the patient's past medical history significant for coronary artery disease , von Willebrand disease, this will be a higher risk of emergent procedure than normal. Patient will be monitored continuously on a single line EKG, blood pressure every 5 minutes, and oxygen saturation. A registered nurse will be present during the entire procedure to monitor the patient. Thank you for allowing me to participate in patient's healthcare. Do not hesitate to call me with any questions. /[id number]/MODL and [id number]/MODL, 02/13/17 [id number] [facility]
[2017-02-07] MEDS ORDERED: PROPYLENE GLYCOL EACHEYE SCH (21:00)
[2017-02-07] MEDS ORDERED: PANTOPRAZOLE SODIUM 40 MG in NS 100 ML IV SCH (21:00)
[2017-02-07] MEDS ORDERED: PEG EACHEYE SCH (21:00)
[2017-02-07 21:25] LABS: HEMATOCRIT 24.8 % (38.0-47.0); HEMOGLOBIN 8.1 g/dL (12.6-16.3)
--- NOTE | 2017-02-07 21:39 | CPEKG ---
Heart Rate: 94 RR Interval: 638 P-R Interval: 176 QRSD Interval: 130 QT Interval: 404 QTC Interval: 506 P [place]: 15 QRS [place]: 33 T Wave [place]: 3 EKG Severity - ABNORMAL ECG - EKG Impression: SINUS RHYTHM EKG Impression: NONSPECIFIC INTRAVENTRICULAR CONDUCTION DELAY EKG Impression: ANTERIOR Q WAVES, POSSIBLY DUE TO LVH EKG Impression: PRIOR ECG WITH RBBB PATTERN (NOW ABSENT) Electronically Signed By: Josh Singleton 08-Feb-2017 16:45:28
[2017-02-08] MEDS: oxyCODONE IR 5 MG TAB PO PRN ×2 (00:11→10:28)
[2017-02-08] MEDS: Propylene Glycol/Peg 400 [Systane Gel Eye Drops] 1 DROP EACHEYE SCH ×2 (01:05→22:16)
[2017-02-08 04:59] LABS: % IMMATURE GRANULYOCYTES 1.2 % (0.0-1.1); ABSOLUTE IMMATURE GRANULOCYTES 0.14 10^3/uL (0.00-0.10); ADD DIFF? NO; ADD MORPH? NO; ADD SCAN? NO; ATYPICAL LYMPHOCYTE FLAG 10 (0-99); FRAGMENT RBC FLAG 0 (0-99); HEMATOCRIT 22.3 % (38.0-47.0); HEMOGLOBIN 7.3 g/dL (12.6-16.3); LEFT SHIFT FLG 0 (0-99); LIPEMIA HEMOLYSIS FLAG 80 (0-99); MEAN CELL HEMOGLOBIN CONCENTR. 32.7 g/dL (32.4-36.7); MEAN CELL VOLUME 91.8 fL (81.5-99.8); MEAN PLATELET VOLUME 10.4 fL (8.7-11.7); PLATELET CLUMPS FLAG 30 (0-99); PLATELET COUNT 211 10^3/uL (150-400); RED BLOOD CELL COUNT 2.43 10^6/uL (4.18-5.33); RED CELL DISTRIBUTION WIDTH 13.6 % (11.5-15.2)
[2017-02-08 05:12] LABS: ANION GAP 5 mEq/L (8-16); CARBON DIOXIDE 18 mEq/l (22-31); CHLORIDE 117 mEq/L (97-110); CREATININE 0.8 mg/dL (0.6-1.0); GLOMERULAR FILTRATION RATE > 60; GLUCOSE 119 mg/dL (70-100); POTASSIUM 4.5 mEq/L (3.5-5.2); SODIUM 140 mEq/L (134-144)
[2017-02-08] MEDS: PANTOPRAZOLE SODIUM 40 MG TAB PO SCH ×2 (09:36→20:44)
--- NOTE | 2017-02-08 13:41 | SOAPPROG ---
SOAP Progress Note Assessment/Plan: Assessment:Plan: pt seen and examined full consult to follow suspect PUD from [facility] urgent EGD 02/07/17 17:56 02/08/17 13:36 1) UGI bleed from Denis erosions - they are large and angry looking. She had been on PIP since EGD in 2009 and tapered off last year and none since August - almost certainly why these recurred with such a vengeance. PPI BID for minimum of 8 weeks , once anemia adn iron def have resolved, may try at once daily and recheck iron studies and H/h about 2-3 months. If decreasing then back to BID PPI. IF doing Ok, I might try to decrease further. 2) H pylori - pending, if positive treat for eradication and document no sooner then 3 months after finishing abx tx 3) post hemorrhagic anemia - getting PRBC as per hospitalist 4) dispo - maybe home later today if c an ambulate w/o trouble, o/w likely in am I spoke to her PCP, Dr. Dior just now. She has appt with him late january and he will check H/H in early February prior to her trip to [place] I think she is to get other labs early next week as well to make sure anemia is resolving Subjective: cc- UGI bleed from Denis erosions pt feeling better, no BM's, eating solid food showed her the photo's and discussed tx at length with her and her Objective: Vital Signs Temp Pulse Resp BP Pulse Ox 36.8 C 86 18 128/59 H 95 02/08/17 12:00 02/08/17 12:00 02/08/17 10:59 02/08/17 12:00 02/08/17 12:00 Laboratory Results 02/08/17 04:11 02/08/17 04:11 02/07/17 02/08/17 02/09/17 05:59 05:59 05:59 Intake Total 1675 Balance 1675 PT 14.1 SEC (12.0-15.0) 02/07/17 10:00 INR 1.10 (0.83-1.16) 02/07/17 10:00 A+Ox3 CTA S1S2, RRR +BS, soft nt ICD10 Worksheet Patient Problems: Problems Problem Status Onset Anemia Acute GI bleed Acute SBO (small bowel obstruction) Acute
--- NOTE | 2017-02-08 15:33 | HOSPPROG ---
Hospitalist Progress Note Assessment/Plan: # acute upper GI bleed secondary to Denis erosions- status post EGD overnight- GI identified is clear source of bleeding suspect this began as the patient was weaning off PPI - continue twice daily PPI - H pylori pending - holding aspirin # anemia secondary to acute blood loss- hemoglobin dropped to 7 this morning oxygen saturation 94% on room air - transfuse 2 units packed red blood cell - recheck blood counts in a.m. - will ask Dr. Buck to track H&H post disposition # coronary artery disease- the patient without chest pain EKG ( personally reviewed and interpreted ) sinus rhythm with right bundle branch block no acute changes - currently holding aspirin will discuss with Dr. Bang # von Willebrand's disease- clearly complicating acute upper GI bleed # prophylaxis Lovenox contraindicated- no SCDs secondary to patient's lower extremity wound # diet cardiac # disposition greater than 2 midnights the patient is requiring transfusion for hemoglobin 7 in the setting of coronary artery disease I have discussed the case with the RN we will transfuse this afternoon recheck counts in a.m. Subjective: still feeling dizzy when walking to the bathroom Objective: Vital Signs Temp Pulse Resp BP Pulse Ox 36.8 C 86 18 128/59 H 95 02/08/17 12:00 02/08/17 12:00 02/08/17 10:59 02/08/17 12:00 02/08/17 12:00 Laboratory Results 02/08/17 04:11 02/08/17 04:11 02/07/17 02/08/17 02/09/17 05:59 05:59 05:59 Intake Total 1675 Balance 1675 PT 14.1 SEC (12.0-15.0) 02/07/17 10:00 INR 1.10 (0.83-1.16) 02/07/17 10:00 - Physical Exam Constitutional: appears nourished Eyes: anicteric sclera Ears, Nose, Mouth, Throat: moist mucous membranes Cardiovascular: regular rate and rhythym, systolic murmur Respiratory: no respiratory distress, no rales or rhonchi Gastrointestinal: normoactive bowel sounds Genitourinary: no bladder fullness Skin: warm Musculoskeletal: No asymmetric calves Neurologic: AAOx3 Psychiatric: interacting appropriately, not anxious Lymph, Heme, Immunologic: no cervical LAD ICD10 Worksheet Patient Problems: Problems Problem Status Onset Anemia Acute GI bleed Acute SBO (small bowel obstruction) Acute
[2017-02-08 17:30] LABS: HEMATOCRIT 27.7 % (38.0-47.0); HEMOGLOBIN 9.1 g/dL (12.6-16.3)
[2017-02-08] MEDS ORDERED: CYCLOSPORINE 0.05% 1 EACH BOX LEFTEYE SCH (21:00)
[2017-02-08] MEDS: CYCLOSPORINE 0.05% 1 EACH BOX LEFTEYE SCH (22:15)
[2017-02-09] MEDS: oxyCODONE IR 5 MG TAB PO PRN ×2 (01:28→09:03)
[2017-02-09 04:46] LABS: HEMATOCRIT 28.1 % (38.0-47.0); HEMOGLOBIN 9.5 g/dL (12.6-16.3); MEAN CELL HEMOGLOBIN 30.2 pg (27.9-34.1); MEAN CELL HEMOGLOBIN CONCENTR. 33.8 g/dL (32.4-36.7); MEAN CELL VOLUME 89.2 fL (81.5-99.8); RED BLOOD CELL COUNT 3.15 10^6/uL (4.18-5.33); RED CELL DISTRIBUTION WIDTH 14.4 % (11.5-15.2)
[2017-02-09 04:49] LABS: ANION GAP 6 mEq/L (8-16); CALCIUM 9.3 mg/dL (8.5-10.4); CARBON DIOXIDE 22 mEq/l (22-31); CHLORIDE 112 mEq/L (97-110); CREATININE 0.7 mg/dL (0.6-1.0); GLOMERULAR FILTRATION RATE > 60; GLUCOSE 125 mg/dL (70-100); POTASSIUM 4.3 mEq/L (3.5-5.2); SODIUM 140 mEq/L (134-144)
[2017-02-09 08:27] VITALS: BP 141/66; PULSE 72; RESP 16; TEMP 98.2; O2SAT 93
[2017-02-09] MEDS ORDERED: NON-FORMULARY NEW DRUG (Multivitamin With Minerals [Multiple Vitamin] 1 EACH) PO SCH (09:00)
[2017-02-09] MEDS ORDERED: MULTIVITAMINS W-MINERALS 1 EACH TAB PO SCH (09:00)
[2017-02-09] MEDS ORDERED: Herbals/Supplements -Info Only PO SCH (09:00)
[2017-02-09] MEDS ORDERED: CHOLECALCIFEROL VIT D3 1,000 UNITS TAB PO SCH (09:00)
[2017-02-09] MEDS: PANTOPRAZOLE SODIUM 40 MG TAB PO SCH (09:03)
[2017-02-09] MEDS: CYCLOSPORINE 0.05% 1 EACH BOX LEFTEYE SCH (09:04)
--- NOTE | 2017-02-09 16:33 | GDS ---
[f rep st] DISCHARGE SUMMARY DISCHARGE DIAGNOSES: Include: 1. Acute upper gastrointestinal bleed secondary to Denis ulcerations. 2. Anemia secondary to acute blood loss. 3. Coronary artery disease. 4. Von Willebrand disease. HISTORY OF PRESENT ILLNESS: This is a 71-year-old female with a history of von Willebrand disease w ho presents with acute complaints of melena and dizziness. For details of patient's initial present ation, please see the history and physical dated 02/07/2017. CONSULTATIVE SERVICES: Include Gastroenterology. PROCEDURES: On 02/07/2017, the patient had an EGD which showed angry-appearing, actively bleeding C ameron ulcerations. HOSPITAL COURSE: 1. Acute upper GI bleed. The patient had been treated in the outpatient setting with a proton pump inhibitor for symptoms of reflux. She had been slowly down titrating this medication to once every 3 days. At the time of her acute presentation, she experienced sudden onset of melena with associa felicita dizziness and was found to have a hemoglobin that had dropped in 1 month from 14 to 9. The tere ent was admitted, made n.p.o., placed on PPI, and underwent EGD which showed Denis erosions with s tigmata of active bleeding. Patient had H pylori testing which was negative. She is being discharg ed on b.i.d. PPI at the minimum for the next 2-3 months. She is to follow in the outpatient setting with Gastroenterology as well as with her outpatient primary care, Dr. Buck, for monitoring of her blood counts. 2. Anemia secondary to acute blood loss. This was clearly made more profound by her underlying von Willebrand disease. The patient had a daphnie hemoglobin at 7.3, received 2 units of packed red bloo d cells. Day of disposition, her hemoglobin is 9.5. The patient will have her H and H followed michelle jaskaran in the next [address] Buck as above. Continued on b.i.d. PPI for Denis erosions. 3. Coronary artery disease. Patient is having her aspirin held through the course of the week. It was discussed with Dr. Bang, and she will restart at a lower dose of 81 mg for the next few wee ks until evaluated in the outpatient cardiology clinic. 4. Von Willebrand disease. Patient has had multiple complications from this disease. She is well aware of her bleeding risks and understands if she has recurrent melena, she is to re-present immedi ately to the emergency department. MEDICATIONS AT THE TIME OF DISPOSITION: Please reference medication reconciliation printed on 02/09. FOLLOWUP APPOINTMENTS: Include with Dr. Buck in approximately 10 days' time. She has a prescri ption for hemoglobin and hematocrit check at the beginning of next week for Dr. Buck to follow. Additionally, will follow with Dr. Duarte and Dr. Bang in the outpatient setting. PENDING STUDIES: At the time of this dictation are none. TIME SPENT: I spent greater than 30 minutes in the planning and coordination of this discharge. /[id number]/MODL
== END 2017-02-09 11:25 | disposition home or self-care (01) | DRG 378 ==
LOC: F3E 13:20 → OBSVTOIN 02-08 15:36
PROVIDERS: ADMIT Hospitalist; ATTEND Hospitalist
PROC: 0DB68ZX Excision of Stomach, Via Natural or Artificial Opening Endoscopic, Diagnostic (ICD-10-PCS; principal; 2017-02-07 18:00)
PROC: 30233N1 Transfusion of Nonautologous Red Blood Cells into Peripheral Vein, Percutaneous Approach (ICD-10-PCS; 2017-02-08)
DX: K25.4 Chronic or unspecified gastric ulcer with hemorrhage (principal); K44.9 Diaphragmatic hernia without obstruction or gangrene; D62 Acute posthemorrhagic anemia; D68.0 Von Willebrand disease; I25.10 Atherosclerotic heart disease of native coronary artery without angina pectoris; E55.9 Vitamin D deficiency, unspecified; M19.90 Unspecified osteoarthritis, unspecified site; Z95.5 Presence of coronary angioplasty implant and graft
CPT/HCPCS: G0378; J2250; J3010; P9016; P9021

== ENCOUNTER → 2017-07-26 | Outpatient (CLI) | payer OTHER, MEDICARE | LOC: BHFA 10:45 | PROVIDERS: ATTEND Internal Medicine Interventional Cardiology | DX: I25.10 Atherosclerotic heart disease of native coronary artery without angina pectoris (principal); D68.0 Von Willebrand disease; Z95.5 Presence of coronary angioplasty implant and graft ==

== ENCOUNTER 2017-09-10 12:08 | Emergency (ER) | payer OTHER, MEDICARE ==
[2017-09-10 12:56] LABS: % IMMATURE GRANULYOCYTES 2.8 % (0.0-1.1); ABSOLUTE IMMATURE GRANULOCYTES 0.19 10^3/uL (0.00-0.10); ADD DIFF? NO; ADD MORPH? NO; ADD SCAN? NO; ATYPICAL LYMPHOCYTE FLAG 10 (0-99); FRAGMENT RBC FLAG 0 (0-99); HEMATOCRIT 34.6 % (38.0-47.0); HEMOGLOBIN 11.9 g/dL (12.6-16.3); LEFT SHIFT FLG 20 (0-99); LIPEMIA HEMOLYSIS FLAG 90 (0-99); MEAN CELL HEMOGLOBIN 30.9 pg (27.9-34.1); MEAN CELL HEMOGLOBIN CONCENTR. 34.4 g/dL (32.4-36.7); MEAN CELL VOLUME 89.9 fL (81.5-99.8); MEAN PLATELET VOLUME 8.9 fL (8.7-11.7); PLATELET CLUMPS FLAG 10 (0-99); PLATELET COUNT 354 10^3/uL (150-400); RED BLOOD CELL COUNT 3.85 10^6/uL (4.18-5.33); RED CELL DISTRIBUTION WIDTH 13.1 % (11.5-15.2)
[2017-09-10 13:05] LABS: INR 1.08 (0.83-1.16); PROTIME(PATIENT) 13.9 SEC (12.0-15.0)
[2017-09-10 13:06] LABS: APTT 27.8 SEC (23.0-38.0)
--- NOTE | 2017-09-10 13:07 | EDPHY ---
H & P Time Seen by Provider: 09/10/17 12:35 HPI/ROS: CHIEF COMPLAINT: Black stool HISTORY OF PRESENT ILLNESS: Patient was admitted here in January of this year for upper GI bleed from Denis ulcerations and had endoscopy by Dr. Duarte. She had a knee replacement at [facility] last week and has been home doing relatively well. She has had to cough to clear her throat once every morning but today noticed a small blood clot when she coughed. Today at 10:00 a.m. she had a single episode of melena appearing black stool and presents for concern for recurrent upper GI bleed. No diarrhea and no vomiting, not dizzy or lightheaded or short of breath. Her right knee has some pain when she is walking or moving but generally is improved since the surgery. REVIEW OF SYSTEMS: Eye: no change in vision ENT: no sore throat Cardiac: no chest pain or syncope Pulmonary: Not short of breath but not coughing, clearing her throat as noted above. Abdomen: HPI but no abdominal pain Musculoskeletal: HPI Skin: Bruising around the knee surgery otherwise negative Neuro: no headache Constitutional: no fever : no urinary symptoms A comprehensive 10 point review of systems is otherwise negative aside from elements mentioned in the history of present illness. PAST MEDICAL HISTORY: Right total knee replacement, coronary disease, diabetes , von Willebrand's, breast cancer, kidney stones. Upper GI bleed. Social history: General Appearance: Alert and conversant, cooperative. Eyes: No scleral icterus. ENT, Mouth: Normal mucous membranes. Normal pharynx without erythema. No posterior pharyngeal bleeding. Respiratory: Normal respiratory effort, breath sounds equal, lungs are clear to auscultation. Cardiovascular: Regular rate and rhythm. Gastrointestinal: Abdomen is soft and non tender. Patient brought a black stool sample own which was sent to the lab for occult guaiac Neurological: Alert and oriented x3. Normally conversant. Face symmetric, normal movement and sensation in all extremities. Skin: Bruising around the right knee incision but not hot to the touch and no drainage, no surrounding redness or lymphangitis. Musculoskeletal: Swelling of the right knee around the operative incision, appears typical for postop knee replacement. Ambulatory with walker. Psychiatric: Not agitated. Emergency Department course/MDM: 1345: Results discussed including negative stool guaiac. Normal BUN. Patient is up with a walker to go to the bathroom. I think but she does not have likely acute upper GI bleed. Her coughing with a single blood clot when she was clearing her throat is not associated with chest pain or shortness of breath and I think pulmonary embolism is unlikely. I do not think she has an acute upper GI bleed today. Heart rate 86 at discharge. Patient states she is comfortable with going home. Smoking Status: Never smoked Constitutional: Initial Vital Signs Temperature (C) 37.0 C 09/10/17 12:12 Heart Rate 106 H 09/10/17 12:12 Respiratory Rate 22 H 09/10/17 12:12 Blood Pressure 149/86 H 09/10/17 12:12 O2 Sat (%) 95 09/10/17 12:12 O2 Delivery Mode Room Air Allergies/Adverse Reactions: desmopressin acetate [From DDAVP (Refrigerated)] Allergy (Severe, Verified 02/07 10:20) Other-Enter Comments levofloxacin [From Levaquin] Allergy (Verified 02/07/17 10:20) Home Medications: Medication Instructions Recorded Cholecalciferol Vit D3 [Vitamin D3 1,000 units PO DAILY 04/30/15 (*)] Multivitamin with Minerals 1 each PO DAILY 04/30/15 [Multiple Vitamin] Propylene Glycol/Peg 400 [Systane 1 drop EACHEYE HS 04/30/15 Gel Eye Drops] Herbals/Supplements -Info Only 1 ea PO DAILY 12/07/16 cycloSPORINE 0.05% [Restasis Opht 1 drop LEFTEYE BID 02/07/17 Drops(*)] Pantoprazole Sodium [Protonix 40mg 40 mg PO BID #180 tab 02/09/17 (*)] Medical Decision Making - Data Points Laboratory Results: Laboratory Results 09/10/17 12:45 09/10/17 12:45 09/10/17 09/10/17 09/10/17 12:45 12:45 12:45 WBC RBC Hgb Hct MCV MCH MCHC RDW Plt Count MPV Neut % (Auto) Lymph % (Auto) [place] % (Auto) Eos % (Auto) Baso % (Auto) Nucleat RBC Rel Count Absolute Neuts (auto) Absolute Lymphs (auto) Absolute Monos (auto) Absolute Eos (auto) Absolute Basos (auto) Absolute Nucleated RBC Immature Gran % Immature Gran # PT 13.9 SEC SEC (12.0-15.0) INR 1.08 (0.83-1.16) APTT 27.8 SEC SEC (23.0-38.0) Sodium 141 mEq/L mEq/L (134-144) Potassium 3.9 mEq/L mEq/L (3.5-5.2) Chloride 107 mEq/L mEq/L (97-110) Carbon Dioxide 20 mEq/l L mEq/l (22-31) Anion Gap 14 mEq/L mEq/L (8-16) BUN 15 mg/dL mg/dL (7-23) Creatinine 0.7 mg/dL mg/dL (0.6-1.0) Estimated GFR > 60 Glucose 121 mg/dL H mg/dL (70-100) Calcium 9.9 mg/dL mg/dL (8.5-10.4) Stool Occult Bld Scrn NEGATIVE (NEGATIVE) 09/10/17 12:45 WBC 6.79 10^3/uL 10^3/uL (3.80-9.50) RBC 3.85 10^6/uL L 10^6/uL (4.18-5.33) Hgb 11.9 g/dL L g/dL (12.6-16.3) Hct 34.6 % L % (38.0-47.0) MCV 89.9 fL fL (81.5-99.8) MCH 30.9 pg pg (27.9-34.1) MCHC 34.4 g/dL g/dL (32.4-36.7) RDW 13.1 % % (11.5-15.2) Plt Count 354 10^3/uL 10^3/uL (150-400) MPV 8.9 fL fL (8.7-11.7) Neut % (Auto) 62.8 % % (39.3-74.2) Lymph % (Auto) 18.0 % % (15.0-45.0) [place] % (Auto) 11.6 % % (4.5-13.0) Eos % (Auto) 3.8 % % (0.6-7.6) Baso % (Auto) 1.0 % % (0.3-1.7) Nucleat RBC Rel Count 0.0 % % (0.0-0.2) Absolute Neuts (auto) 4.26 10^3/uL 10^3/uL (1.70-6.50) Absolute Lymphs (auto) 1.22 10^3/uL 10^3/uL (1.00-3.00) Absolute Monos (auto) 0.79 10^3/uL 10^3/uL (0.30-0.80) Absolute Eos (auto) 0.26 10^3/uL 10^3/uL (0.03-0.40) Absolute Basos (auto) 0.07 10^3/uL 10^3/uL (0.02-0.10) Absolute Nucleated RBC 0.00 10^3/uL 10^3/uL (0-0.01) Immature Gran % 2.8 % H % (0.0-1.1) Immature Gran # 0.19 10^3/uL H 10^3/uL (0.00-0.10) PT INR APTT Sodium Potassium Chloride Carbon Dioxide Anion Gap BUN Creatinine Estimated GFR Glucose Calcium Stool Occult Bld Scrn Departure - Departure Disposition: Home, Routine, Self-Care Clinical Impression: Black stool Condition: Good Instructions: Gastrointestinal Bleeding (ED), Precautions after Total Joint Replacement Surgery (ED) Additional Instructions: Your stool sample tested negative for blood. Please return if you get vomiting or rectal bleeding or diarrhea, or worsening episodes of dark stool. Referrals: Naun Buck MD [Primary Care Provider] - As per Instructions
[2017-09-10 13:17] LABS: ANION GAP 14 mEq/L (8-16); CALCIUM 9.9 mg/dL (8.5-10.4); CARBON DIOXIDE 20 mEq/l (22-31); CHLORIDE 107 mEq/L (97-110); CREATININE 0.7 mg/dL (0.6-1.0); GLOMERULAR FILTRATION RATE > 60; GLUCOSE 121 mg/dL (70-100); POTASSIUM 3.9 mEq/L (3.5-5.2); SODIUM 141 mEq/L (134-144)
[2017-09-10 14:12] VITALS: BP 149/84; PULSE 87; RESP 16; TEMP 97.7; O2SAT 96
== END 2017-09-10 14:02 | disposition home or self-care (01) ==
DX: K92.1 Melena (principal); E11.9 Type 2 diabetes mellitus without complications; Z85.3 Personal history of malignant neoplasm of breast

== ENCOUNTER 2018-08-27 11:02 | Emergency (ER) | payer OTHER, MEDICARE ==
--- NOTE | 2018-08-27 12:45 | EDPHY ---
H & P Time Seen by Provider: 08/27/18 12:45 HPI/ROS: CHIEF COMPLAINT: 2 episodes of slight rectal bleeding HISTORY OF PRESENT ILLNESS: Patient has von Willebrand's disease but has a severe reaction to DDAVP. She feels a little bit bloated today and has been constipated with no bowel movement for 48 hr. She also has a history of bleeding ulcer 2 years ago requiring transfusion. She did have a little bit of a backache 2 days ago and took Voltaren and Aleve but the back ache has subsided. She noted 2 episodes today of slight red blood on the toilet paper, 1 at 8:00 a.m., and 1 at 10:00 a.m.. She has not had large amounts of rectal bleeding and no melena. No abdominal pain. Not dizzy or lightheaded and no chest pain or shortness of breath. At 1:25 p.m. She went to the bathroom and tried a bowel movement, but nothing came out she did not have any bleeding. REVIEW OF SYSTEMS: Eye: no change in vision ENT: no sore throat Cardiac: no chest pain or syncope Pulmonary: no cough or SOB Abdomen: HPI Musculoskeletal: no back pain Skin: no rash Neuro: no headache Constitutional: no fever : no urinary symptoms A comprehensive 10 point review of systems is otherwise negative aside from elements mentioned in the history of present illness. PAST MEDICAL HISTORY: Includes SD, von Willebrand's, breast cancer, kidney stones, upper GI bleed Social history: Nonsmoker General Appearance: Alert and conversant, cooperative. Eyes: No scleral icterus. ENT, Mouth: Normal mucous membranes. Respiratory: Normal respiratory effort, breath sounds equal, lungs are clear to auscultation. Cardiovascular: Regular rate and rhythm. Gastrointestinal: Abdomen is soft and non tender. Anoscopy shows internal hemorrhoid which is not bleeding, no bleeding proximal to the scope. Neurological: Alert, face symmetric, normal motor and sensory in extremities. Skin: Warm and dry, no rashes. Musculoskeletal: No peripheral edema. Psychiatric: Not agitated. Emergency Department course/MDM: Patient brought in toilet paper with only 1 or 2 mL of blood on the toilet paper which is what happened at both episodes at home. Although possibility of internal bleeding was discussed with patient she wants to go home which I think is reasonable as I think it is more likely that this was related to internal hemorrhoid. Discussed with Nik at 1338. Will arrange office follow-up this week. No DDAVP as the patient had a previous severe reaction. Smoking Status: Never smoked Constitutional: Initial Vital Signs Temperature (C) 36.9 C 08/27/18 11:12 Heart Rate 81 08/27/18 11:12 Respiratory Rate 16 08/27/18 11:12 Blood Pressure 131/72 H 08/27/18 11:12 O2 Sat (%) 98 08/27/18 11:12 O2 Delivery Mode Room Air Allergies/Adverse Reactions: desmopressin acetate [From DDAVP (Refrigerated)] Allergy (Severe, Verified 02/07 10:20) Other-Enter Comments levofloxacin [From Levaquin] Allergy (Verified 02/07/17 10:20) Home Medications: Medication Instructions Recorded Aspirin 81mg (*) 08/27/18 Losartan Potassium 08/27/18 Norvasc 5 mg (*) 08/27/18 Pantoprazole Sodium 08/27/18 Medical Decision Making Differential Diagnosis: Differential considered including but not limited to internal hemorrhoids, upper GI bleed, lower GI bleed, anal fissure - Data Points Laboratory Results: Laboratory Results 08/27/18 12:30 08/27/18 12:30 08/27/18 08/27/18 12:30 12:30 WBC 10.59 10^3/uL H 10^3/uL (3.80-9.50) RBC 4.65 10^6/uL 10^6/uL (4.18-5.33) Hgb 14.0 g/dL g/dL (12.6-16.3) Hct 41.5 % % (38.0-47.0) MCV 89.2 fL fL (81.5-99.8) MCH 30.1 pg pg (27.9-34.1) MCHC 33.7 g/dL g/dL (32.4-36.7) RDW 12.8 % % (11.5-15.2) Plt Count 281 10^3/uL 10^3/uL (150-400) MPV 9.6 fL fL (8.7-11.7) Neut % (Auto) 70.0 % % (39.3-74.2) Lymph % (Auto) 15.5 % % (15.0-45.0) [place] % (Auto) 9.8 % % (4.5-13.0) Eos % (Auto) 3.2 % % (0.6-7.6) Baso % (Auto) 0.7 % % (0.3-1.7) Nucleat RBC Rel Count 0.0 % % (0.0-0.2) Absolute Neuts (auto) 7.42 10^3/uL H 10^3/uL (1.70-6.50) Absolute Lymphs (auto) 1.64 10^3/uL 10^3/uL (1.00-3.00) Absolute Monos (auto) 1.04 10^3/uL H 10^3/uL (0.30-0.80) Absolute Eos (auto) 0.34 10^3/uL 10^3/uL (0.03-0.40) Absolute Basos (auto) 0.07 10^3/uL 10^3/uL (0.02-0.10) Absolute Nucleated RBC 0.00 10^3/uL 10^3/uL (0-0.01) Immature Gran % 0.8 % % (0.0-1.1) Immature Gran # 0.08 10^3/uL 10^3/uL (0.00-0.10) Sodium 138 mEq/L mEq/L (135-145) Potassium 4.3 mEq/L mEq/L (3.3-5.0) Chloride 106 mEq/L mEq/L (97-110) Carbon Dioxide 25 mEq/l mEq/l (22-31) Anion Gap 7 mEq/L L mEq/L (8-16) BUN 19 mg/dL mg/dL (7-23) Creatinine 0.7 mg/dL mg/dL (0.6-1.0) Estimated GFR > 60 Glucose 104 mg/dL H mg/dL (70-100) Calcium 9.8 mg/dL mg/dL (8.5-10.4) Departure - Departure Disposition: Home, Routine, Self-Care Clinical Impression: Internal hemorrhoid, bleeding Condition: Good Instructions: Hemorrhoids (ED), Rectal Bleeding (ED) Additional Instructions: Please return if you have increasing rectal bleeding or abdominal pain. Referrals: Naun Buck MD [Primary Care Provider] - As per Instructions Fortino Duarte MD [Medical Doctor] - As per Instructions
[2018-08-27 12:47] LABS: PLATELET COUNT 281 10^3/uL (150-400)
[2018-08-27 13:25] VITALS: BP 172/98
== END 2018-08-27 13:54 | disposition home or self-care (01) ==
DX: K64.8 Other hemorrhoids (principal)

== ENCOUNTER → 2018-10-01 | Outpatient (CLI) | payer OTHER, MEDICARE | LOC: FIMAGING 09:13 | PROVIDERS: ATTEND Internal Medicine | DX: J42 Unspecified chronic bronchitis (principal); I70.0 Atherosclerosis of aorta; K44.9 Diaphragmatic hernia without obstruction or gangrene ==

== ENCOUNTER → 2018-12-26 | Outpatient (CLI) | payer OTHER, MEDICARE | LOC: FIMAGING 07:24 | PROVIDERS: ATTEND Internal Medicine Gastroenterology | DX: K21.9 Gastro-esophageal reflux disease without esophagitis (principal); K44.9 Diaphragmatic hernia without obstruction or gangrene; M50.30 Other cervical disc degeneration, unspecified cervical region; M43.12 Spondylolisthesis, cervical region ==

== ENCOUNTER 2019-01-02 08:20 | Day surgery (SDC) | payer OTHER, MEDICARE ==
[2019-01-02] MEDS ORDERED: LIDOCAINE 1% 2 ML INJ ID PRN (08:33)
[2019-01-02] MEDS ORDERED: LR 1,000 ML IV ONE (08:33)
--- NOTE | 2019-01-02 09:52 | PDANEPAE ---
ANE History of Present Illness GERD, hiatal hernia ANE Past Medical History - Cardiovascular History Hx Hypertension: No Hx Arrhythmias: No Hx Chest Pain: Yes Hx Coronary Artery / Peripheral Vascular Disease: Yes Hx CHF / Valvular Disease: No Hx Palpitations: No Cardiovascular History Comment: [place] x2 in 1999 s/p stents x2, CAD - Pulmonary History Hx COPD: No Hx Asthma/Reactive Airway Disease: No Hx Recent Upper Respiratory Infection: No Hx Oxygen in Use at Home: No Hx Sleep Apnea: No - Neurologic History Hx Cerebrovascular Accident: No Hx Seizures: No Hx Dementia: No - Endocrine History Hx Diabetes: No Hypothyroid: No Hyperthyroid: No Obesity: mild - Renal History Hx Renal Disorders: No - Liver History Hx Hepatic Disorders: No - Neurological & Psychiatric Hx Hx Neurological and Psychiatric Disorders: No - Cancer History Hx Cancer: No - Congenital Disorder History Hx Congenital Disorders: No - GI History GERD: moderate Hx Gastrointestinal Disorders: Yes - Chronic Pain History Chronic Pain: No - Surgical History Prior Surgeries: knee replacement, back surgeries, lumpectomy, exploratory lap for bowel obstruction, EGD, eye surgeries x3, appendectomy, tonsilectomy, cataracts bilat, kidney stone removal, hematoma in right calf drainage ANE Review of Systems Review of systems is: negative Review of Systems: - Exercise capacity Exercise capacity: >=4 METS METS (RN): 4 METS ANE Patient History - Allergies Allergies/Adverse Reactions: desmopressin acetate [From DDAVP (Refrigerated)] Allergy (Verified 01/01/19 16: 26) WILL KILL HER levofloxacin [From Levaquin] Allergy (Verified 01/01/19 16:26) - Home Medications Home medications: home medication list seen and reviewed Home Medications: Aspirin 81mg (*) 08/27/18 [Last Taken Unknown] Norvasc 5 mg (*) 08/27/18 [Last Taken Unknown] Pantoprazole Sodium 08/27/18 [Last Taken Unknown] Ferrous Sulfate 01/02/19 [Last Taken Unknown] Multivitamin 01/02/19 [Last Taken Unknown] Ranitidine HCl 01/02/19 [Last Taken Unknown] Vitamin D3 01/02/19 [Last Taken Unknown] Vitamin E 01/02/19 [Last Taken Unknown] - NPO status NPO Status: no food or drink >8 hours NPO Since - Liquids (Date): 01/01/19 NPO Since - Liquids (Time): 20:00 NPO Since - Solids (Date): 01/01/19 NPO Since - Solids (Time): 20:00 - Anes Hx Anes Hx: no prior problems - Smoking Hx Smoking Status: Never smoked - Family Anes Hx Family Hx Anesthesia Complications: none ANE Labs/Vital Signs - Vital Signs Vital Signs: reviewed preoperatively; see RN documention for details Blood Pressure: 142/91 Heart Rate: 90 Respiratory Rate: 18 O2 Sat (%): 93 Height: 157.48 cm Weight: 70.307 kg ANE Physical Exam - Airway Neck exam: FROM Mallampati Score: Class 2 Mouth exam: normal dental/mouth exam - Pulmonary Pulmonary: no respiratory distress - Cardiovascular Cardiovascular: regular rate and rhythym - ASA Status ASA Status: II ANE Anesthesia Plan Anesthesia Plan: GA with mask
[2019-01-02] MEDS ORDERED: PROPOFOL/EMULSION 500 MG/50 ML BOTTLE IV ONE (10:33)
--- NOTE | 2019-01-02 11:00 | PDGENHP ---
History & Physical Chief Complaint: large HH History of Present Illness: large belches, large HH, antonia christopher Pertinent Past, Social, Family History: tobacco - none. alcohol - none. fhx - no cancers. large HH Relevant Physical Exam: A+Ox3. CTA. S1S2. +Bs,soft, nt Cardiorespiratory Assessment: class 2
--- NOTE | 2019-01-02 11:36 | GIREPORT ---
[facility] Surgical Services - Endoscopy Department Patient Name: Kera Perez Procedure Date: 01/02/2019 11:11 AM Patient Type: Outpatient Attending MD/ ER Physician: Fortino Duarte MD Procedure: Upper GI endoscopy Indications: For therapy of hiatal hernia, Eructation Providers: Fortino Duarte MD Referring MD: Naun Buck MD Medicines: Propofol per Anesthesia = IV general with spontaneous respirations Complications: No immediate complications. Estimated blood loss: None. Description of Procedure: After obtaining informed consent, the endoscope was passed under direct vision. Throughout the procedure, the patient's blood pressure, pulse, and oxygen saturations were monitored continuously. The Endoscope was intro duced through the mouth, and advanced to the third part of duodenum. The uppe r GI endoscopy was accomplished without difficulty. The patient tolerated th e procedure well. Findings: One benign-appearing, intrinsic stenosis was found at the gastroesophag eal junction. This stenosis was mildly severe and measured less than one cm (in length). The stenosis was traversed. A TTS dilator was passed through t he scope. Dilation with an 18-19-20 mm x 5.5 cm CRE balloon dilator was performed to 20 mm. The dilation site was examined and showed no change . Estimated blood loss: none. A large hiatal hernia was present. The examined duodenum was normal. The exam was otherwise without abnormality. Estimated Blood Loss: Estimated blood loss: none. Post Op Diagnosis: - Benign-appearing esophageal stenosis. Dilated. - Large hiatal hernia. There appears to be functional obstruction form the anatomy of her large HH. I suspect her symptoms are related to her larg e HH - not emptying the upper portion of her stomach which is in her chest cavity. This is better seen on her UGI series. - Normal examined duodenum. - The examination was otherwise normal. - No specimens collected. Recommendation: - Follow an antireflux regimen. - Use Protonix (pantoprazole) 40 mg PO daily. Decreased from BID - Resume previous diet. - Patient has a contact number available for emergencies. The signs and symptoms of potential delayed complications were discussed with the pat ient. Return to normal activities tomorrow. Written discharge instructions we re provided to the patient. - Continue present medications. - Discharge patient to home (ambulatory). - Return to endoscopist in 1 month. - Return to primary care physician as previously scheduled. - Thank you for allowing me to help in your patient's care. Do not hesi arias to call with any questions. Attending Participation: I personally performed the entire procedure. Gerald Turner M.D Fortino Duarte MD 01/02/2019 11:36:10 AM This report has been signed electronicallyMattalan Duarte MD Number of Addenda: 0 Note Initiated On: 01/02/2019 11:11 AM [email or web address]
[2019-01-02] MEDS ORDERED: NALOXONE HCL 0.4 MG/ML INJ IVP PRN (12:25)
--- NOTE | 2019-01-02 12:25 | POSTANESTH ---
Post Anesthetic Evaluation Cardiovascular Status: Normal, Stable Respiratory Status: Normal, Stable Level of Consciousness/Mental Status: Can Participate in Eval Pain Control: Adequate, Prn Tx Ordered Nausea/Vomiting Control: Adequate, Prn Tx Ordered Complications Possibly Related to Anesthesia: None Noted
[2019-01-02 13:02] VITALS: BP 168/98
== END 2019-01-02 12:50 | disposition home or self-care (01) ==
LOC: FSGY 08:20
PROVIDERS: ATTEND Internal Medicine Gastroenterology
PROC: 0D748ZZ Dilation of Esophagogastric Junction, Via Natural or Artificial Opening Endoscopic (ICD-10-PCS; principal; 2019-01-02 10:15)
DX: K22.2 Esophageal obstruction (principal); K44.9 Diaphragmatic hernia without obstruction or gangrene; I25.10 Atherosclerotic heart disease of native coronary artery without angina pectoris; E11.9 Type 2 diabetes mellitus without complications; I10 Essential (primary) hypertension; M17.0 Bilateral primary osteoarthritis of knee; D68.0 Von Willebrand disease; I25.2 Old myocardial infarction; Z85.3 Personal history of malignant neoplasm of breast; Z95.5 Presence of coronary angioplasty implant and graft
CPT/HCPCS: 43249; C1726; J2704

== ENCOUNTER → 2019-01-28 | Outpatient (CLI) | payer OTHER, MEDICARE | LOC: FIMAGING 10:39 | PROVIDERS: ATTEND Internal Medicine | DX: R10.9 Unspecified abdominal pain (principal); Z95.5 Presence of coronary angioplasty implant and graft; Z98.1 Arthrodesis status | CPT/HCPCS: 83516-90 ==